=== PATIENT | female | born 1990 | race Caucasian/White ===

== ENCOUNTER 2019-09-16 15:58 | Emergency (ER) | payer SELFPAY ==
[~2019-09-16] VITALS: Ht 170.2 cm; Wt 127.0 kg
[2019-09-16 16:09] VITALS: BP 162/49
[2019-09-16 17:17] VITALS: BP 162/49
== END 2019-09-16 17:17 | disposition home or self-care (01) ==
LOC: MED 15:58 → EEVIPCON 15:58 → MED 17:17
DX: U07.1 COVID-19 (principal); B34.9 Viral infection, unspecified; E11.9 Type 2 diabetes mellitus without complications; R19.7 Diarrhea, unspecified
CPT/HCPCS: 99283; U0003